=== PATIENT | male | born 1950 ===

== ENCOUNTER 2023-05-15 06:53 | Inpatient (IN) | payer OTHER ==
[~2023-05-15] VITALS: Ht 180.3 cm; Wt 78.9 kg
[~2023-05-15 06:53] MED LIST: AMLODIP PO; FOLIC A PO; KAPSPARGO SPRIN50 MG PO; LOSART PO; ORENCIA50 MG/0.4
== END 2023-05-17 12:56 | disposition home or self-care (01) | DRG 351 ==
LOC: CIR.AMB 06:53 → O/R 15:08 → SURG 15:08
PROVIDERS: ADMIT Surgery; ATTEND Surgery
PROC: 0T2BX0Z Change Drainage Device in Bladder, External Approach (ICD-10-PCS; 2023-05-15)
PROC: 0YU54JZ Supplement Right Inguinal Region with Synthetic Substitute, Percutaneous Endoscopic Approach (ICD-10-PCS; principal; 2023-05-15 12:30)
DX: K40.90 Unilateral inguinal hernia, without obstruction or gangrene, not specified as recurrent (principal); T83.83XA Hemorrhage due to genitourinary prosthetic devices, implants and grafts, initial encounter; R31.9 Hematuria, unspecified